=== PATIENT | female | born 1955 | race Caucasian/White ===

== ENCOUNTER 2021-07-02 14:47 | Emergency (ER) | payer MEDICARE, BC ==
[~2021-07-02] VITALS: Ht 160 cm; Wt 121.8 kg
[~2021-07-02 14:47] MED LIST: ALPR-624 PO; ATOR20TA66 PO; DILT-94 PO; INSU100V12 SQ; LISI1TAB51 PO; LISI20TA28 PO; OMEG1CAP2 PO; RIVA20TA PO; SITA100T15 PO; UBID100C16 PO
[2021-07-02 15:50] LABS: BASOPHILS # (AUTO) 0.1 X10'3 (0-0.2); BASOPHILS % (AUTO) 0.8 % (0-1); EOSINOPHILS # (AUTO) 0.1 X10'3 (0-0.9); EOSINOPHILS % (AUTO) 1.3 % (0-6); HEMOGLOBIN 14.1 g/dl (12.0-16.0); LYMPHOCYTES # (AUTO) 0.5 X10'3 (1.1-4.8); LYMPHOCYTES % (AUTO) 6.3 % (21-51); MEAN CORPUSCULAR HEMOGLOBIN 26.8 PG (27.0-31.0); MEAN CORPUSCULAR HGB CONC 32.9 g/dL (33.0-36.5); MEAN CORPUSCULAR VOLUME 81.6 FL (78-98); MEAN PLATELET VOLUME 6.4 FL (7.4-10.4); MONOCYTES # (AUTO) 0.6 X10'3 (0-0.9); MONOCYTES % (AUTO) 7.5 % (2-12); NEUTROPHILS # (AUTO) 6.9 X10'3 (1.8-7.7); NEUTROPHILS % (AUTO) 84.1 % (42-75); PLATELET COUNT 305 X10'3 (140-440); RED BLOOD COUNT 5.27 X10'6 (4.20-5.60); RED CELL DISTRIBUTION WIDTH 15.8 % (11.5-14.5); WHITE BLOOD COUNT 8.2 X10'3 (4.5-11.0)
[2021-07-02 16:04] LABS: ALANINE AMINOTRANSFERASE 19 U/L (12-78); ALBUMIN 3.4 G/DL (3.4-5.0); ALBUMIN/GLOBULIN RATIO 0.9 (1.1-1.5); ALKALINE PHOSPHATASE 88 IU/L (46-116); ANION GAP 9 (8-16); ASPARTATE AMINO TRANSFERASE 13 U/L (10-37); BILIRUBIN,TOTAL 0.4 MG/DL (0.1-1.0); BLOOD UREA NITROGEN 33 MG/DL (7-18); BUN/CREATININE RATIO 26.2 (6.6-38.0); CALCIUM 9.2 MG/DL (8.5-10.1); CHLORIDE 103 MMOL/L (99-107); CREATININE 1.26 MG/DL (0.40-0.90); GLUCOSE 233 MG/DL (70-104); POTASSIUM 4.6 MMOL/L (3.5-5.1); SODIUM 138 MMOL/L (135-145); TOTAL CARBON DIOXIDE 26.4 MMOL/L (24-32); TOTAL PROTEIN 7.4 G/DL (6.4-8.2); eGFR 42 ML/MIN
[2021-07-02 16:50] LABS: MAGNESIUM 2.3 MG/DL (1.5-2.4)
[2021-07-02] MEDS: furosemide 10 MG/1 ML 10ml inj IV ONE (17:31)
[2021-07-02 19:38] VITALS: BP 165/89
[2021-07-02 20:28] LABS: D-DIMER 0.33 MG/L FEU (0-0.50)
[2021-07-02] MEDS ORDERED: FURO-150 PO ×2 (20:40→20:43)
[2021-07-02] MEDS ORDERED: POTA-82 PO (20:40)
[2021-07-02] MEDS ORDERED: POTA-188 PO (20:43)
== END 2021-07-02 21:30 | disposition home or self-care (01) ==
LOC: ER 14:48
DX: R06.02 Shortness of breath (principal); M79.89 Other specified soft tissue disorders; I48.91 Unspecified atrial fibrillation; I12.9 Hypertensive chronic kidney disease with stage 1 through stage 4 chronic kidney disease, or unspecified chronic kidney disease; N18.30 Chronic kidney disease, stage 3 unspecified; E11.22 Type 2 diabetes mellitus with diabetic chronic kidney disease; Z88.8 Allergy status to other drugs, medicaments and biological substances; Z79.4 Long term (current) use of insulin; Z79.899 Other long term (current) drug therapy; Z20.822 Contact with and (suspected) exposure to COVID-19
CPT/HCPCS: 36415; 71045; 80053; 83735; 83880; 84145; 84484; 85025; 85379; 87040; 87635; 93005; 96374; 99285; C9803; J1940

== ENCOUNTER 2021-08-06 06:55 | Day surgery (SDC) | payer MEDICARE, BC ==
[2021-08-04 11:06] LABS: BASOPHILS # (AUTO) 0.1 X10'3 (0-0.2); BASOPHILS % (AUTO) 0.8 % (0-1); EOSINOPHILS # (AUTO) 0.2 X10'3 (0-0.9); EOSINOPHILS % (AUTO) 2.5 % (0-6); HEMATOCRIT 47.8 % (35.0-45.0); HEMOGLOBIN 15.5 g/dl (12.0-16.0); LYMPHOCYTES # (AUTO) 0.7 X10'3 (1.1-4.8); LYMPHOCYTES % (AUTO) 11.4 % (21-51); MEAN CORPUSCULAR HEMOGLOBIN 26.5 PG (27.0-31.0); MEAN CORPUSCULAR HGB CONC 32.4 g/dL (33.0-36.5); MEAN CORPUSCULAR VOLUME 81.8 FL (78-98); MEAN PLATELET VOLUME 7.3 FL (7.4-10.4); MONOCYTES # (AUTO) 0.6 X10'3 (0-0.9); MONOCYTES % (AUTO) 8.7 % (2-12); NEUTROPHILS # (AUTO) 4.8 X10'3 (1.8-7.7); NEUTROPHILS % (AUTO) 76.6 % (42-75); PLATELET COUNT 195 X10'3 (140-440); RED BLOOD COUNT 5.84 X10'6 (4.20-5.60); WHITE BLOOD COUNT 6.3 X10'3 (4.5-11.0)
[2021-08-04 11:17] LABS: ALBUMIN 3.9 G/DL (3.4-5.0); BLOOD UREA NITROGEN 30 MG/DL (7-18); BUN/CREATININE RATIO 23.8 (6.6-38.0); CALCIUM 9.1 MG/DL (8.5-10.1); CREATININE 1.26 MG/DL (0.40-0.90); GLUCOSE 191 MG/DL (70-104); TOTAL CARBON DIOXIDE 25.8 MMOL/L (24-32); eGFR 42 ML/MIN
[2021-08-04 11:29] LABS: ANION GAP 12 (8-16); CHLORIDE 105 MMOL/L (99-107); POTASSIUM 4.4 MMOL/L (3.5-5.1); SODIUM 143 MMOL/L (135-145)
[2021-08-06] VITALS (21 sets, daily range): BP systolic 123–195; BP diastolic 68–98
[~2021-08-06] VITALS: Ht 157.5 cm; Wt 122.0 kg
[2021-08-06] MEDS ORDERED: normal saline 1000ml 1,000 ML IV SCH (07:20)
[2021-08-06] MEDS ORDERED: morphine 10mg/ml inj. IV ONE (07:20)
[2021-08-06] MEDS ORDERED: amiodarone 150mg/dext, iso-os 100 ML IV ONE (07:20)
[2021-08-06] MEDS ORDERED: atropine 0.1mg/ml 10ml syringe IV ONE (07:20)
[2021-08-06] MEDS ORDERED: LORazepam 0.5 MG tablet PO ONE (07:20)
[2021-08-06] MEDS ORDERED: MIDAZolam 1mg/ml 10ml vial IV ONE (07:20)
[2021-08-06] MEDS ORDERED: diphenhydrAMINE 25mg capsule PO ONE (07:20)
[2021-08-06] MEDS ORDERED: ROSU10TA28 PO (07:41)
[2021-08-06] MEDS ORDERED: EMPA1TAB PO (07:41)
[2021-08-06] MEDS ORDERED: MAGN250T11 PO (07:41)
[2021-08-06] MEDS ORDERED: POTA10CA44 PO (07:41)
[2021-08-06] MEDS ORDERED: CELE100C98 PO (07:41)
[2021-08-06] MEDS ORDERED: Tylenol PO (07:41)
[2021-08-06] MEDS ORDERED: FURO20TA4 PO (07:41)
[2021-08-06] MEDS ORDERED: LORA10CA PO (07:41)
[2021-08-06] MEDS ORDERED: flecainide 50mg tablet PO SCH (11:00)
== END 2021-08-06 12:00 | disposition home or self-care (01) ==
LOC: SSTAY O 06:55
PROVIDERS: ATTEND Internal Medicine Cardiovascular Disease
DX: I48.19 Other persistent atrial fibrillation (principal); I25.10 Atherosclerotic heart disease of native coronary artery without angina pectoris; E11.22 Type 2 diabetes mellitus with diabetic chronic kidney disease; I13.0 Hypertensive heart and chronic kidney disease with heart failure and stage 1 through stage 4 chronic kidney disease, or unspecified chronic kidney disease; N18.9 Chronic kidney disease, unspecified; I50.30 Unspecified diastolic (congestive) heart failure; E78.5 Hyperlipidemia, unspecified; G47.33 Obstructive sleep apnea (adult) (pediatric); E66.9 Obesity, unspecified; Z68.42 Body mass index [BMI] 45.0-49.9, adult; M10.9 Gout, unspecified; F41.9 Anxiety disorder, unspecified; I49.5 Sick sinus syndrome; Z85.59 Personal history of malignant neoplasm of other urinary tract organ; Z90.710 Acquired absence of both cervix and uterus; Z98.890 Other specified postprocedural states; Z88.0 Allergy status to penicillin; Z81.8 Family history of other mental and behavioral disorders; Z83.6 Family history of other diseases of the respiratory system; Z80.3 Family history of malignant neoplasm of breast
CPT/HCPCS: 36415; 80048; 82948; 85025; 92960; 93005; 94799; J0282; J2250; J2274; J7030